=== PATIENT | female | born 1955 | race Caucasian/White ===

== ENCOUNTER → 2017-10-27 | Outpatient (CLI) | payer BC ==
--- NOTE | 2017-10-27 12:02 | BD ---
EXAMINATION TYPE: MG DEXA axial skeleton. DATE OF EXAM: 10/27/2017 COMPARISON: NONE CLINICAL HISTORY: 62 YR OLD FEMALE....ICD-10 CODE: Z13.820 SCREENING FOR OSTEOPOROSIS Height: 62.6 Weight: 144 FRAX RISK QUESTIONS: Alcohol (3 or more units per day): NO Family History (Parent hip fracture): NO FXS Glucocorticoids (More than 3mos): NO (Ex: prednisone, prednisolone, methylprednisolone, dexamethasone, and hydrocortisone). History of Fracture in Adulthood: NO Secondary Osteoporosis: NO 1. Type 1 Diabetes: NO 2. Hyperthyroidism: NO 3. Menopause before 45: NO 4. Malnutrition: 5. Chronic liver disease: NO Rheumatoid Arthritis: NO Current Tobacco Use: NO...QUIT 8 MOS AGO RISK FACTORS HISTORY OF: Family History of Osteoporosis: YES, GRANDMOTHER NO HIP FX Active: YES Diet low in dairy products/other sources of calcium: NO Postmenopausal woman: 52 YRS OLD Lost more than 2 inches in height since high school: NO Hyperparathyroidism: NO Adrenal Insufficiency: NO MEDICATIONS: Additional Medications: REFLUX MEDS PRN, STATINS FOR CHOLESTEROL, VIT D Additional History: NOTHING TO NOTE EXAM MEASUREMENTS: Bone mineral densitometry was performed using the [employer]. Bone mineral density as measured about the Lumbar spine is: ----- L1-L4(G/cm2): 1.224 T Score Values are as follows: ----- L1: 0.2 ----- L2: 0.5 ----- L3: 0.5 ----- L4: 0.1 ----- L1-L4: 0.4 Bone mineral density FIRST BONE DENSITY AT [facility] Bone mineral density about the R hip (g/cm2): 0.902 Bone mineral density about the L hip (g/cm2): 0.899 T Score values are as follows: -----R Neck: -1.2 -----L Neck: -1.3 -----R Total: -0.8 -----L Total: -0.9 Bone mineral density FIRST [facility] BONE DENSITY STUDY FRAX%S: THERE IS A 8.3% CHANCE OF A MAJOR OSTEOPOROTIC FX AND A 0.7% FOR HIP FX....PROBABILITY OF FX IN 10 YRS TIME IMPRESSION: Osteopenia (T Score between -2.5 and -1) is present at femoral neck level in both hips. There is slightly increased risk of fracture and the patient may be considered for treatment. Re-Screen 2-5 years. NOTE: T-SCORE=SD OF THE YOUNG ADULT MEAN.
--- NOTE | 2017-10-31 11:30 | MM ---
Reason for exam: screening (asymptomatic). Last mammogram was performed 1 year and 4 months ago. History: Patient is postmenopausal. Family history of breast cancer in mother, breast cancer in sister, and breast cancer in maternal cousin. Physical Findings: A clinical breast exam by your physician is recommended on an annual basis and results should be correlated with mammographic findings. MG Screening Mammo w CAD Bilateral CC and MLO view(s) were taken. Prior study comparison: June 14, 2016, bilateral MG screening mammo w CAD. February 11, 2015, mammogram, performed at [facility]. The breast tissue is almost entirely fat. There is chronic nodularity in the left breast. No significant changes when compared with prior studies. ASSESSMENT: Negative, BI-RAD 1 RECOMMENDATION: Routine screening mammogram of both breasts in 1 year.
== END | disposition home or self-care (01) ==
LOC: RADMAMWWP 09:50
PROVIDERS: ATTEND Obstetrics & Gynecology
DX: Z12.31 Encounter for screening mammogram for malignant neoplasm of breast (principal); M85.88 Other specified disorders of bone density and structure, other site
CPT/HCPCS: 77067; 77080